=== PATIENT | male | born 1960 | race Caucasian/White ===

== ENCOUNTER → 2019-08-31 14:46 | Outpatient (BNVA) | payer OTHER, SELFPAY | PROVIDERS: Family Provider Internal Medicine; PCP Internal Medicine; Visit Provider Internal Medicine | DX: D50.8 Other iron deficiency anemias (principal); E53.8 Deficiency of other specified B group vitamins; K90.9 Intestinal malabsorption, unspecified; I10 Essential (primary) hypertension | CPT/HCPCS: 82607; 85025 ==

== ENCOUNTER → 2019-09-01 14:46 | Outpatient (BNVA) | payer OTHER, SELFPAY | PROVIDERS: Family Provider Internal Medicine; PCP Internal Medicine; Visit Provider Internal Medicine | DX: D50.8 Other iron deficiency anemias (principal); E53.8 Deficiency of other specified B group vitamins; K90.9 Intestinal malabsorption, unspecified; I10 Essential (primary) hypertension | CPT/HCPCS: 83540; 83550 ==

== ENCOUNTER → 2020-04-21 16:12 | Outpatient (BNVA) | payer OTHER, SELFPAY | PROVIDERS: Family Provider Internal Medicine; PCP Internal Medicine; Visit Provider Internal Medicine | DX: K90.9 Intestinal malabsorption, unspecified (principal); E11.9 Type 2 diabetes mellitus without complications | CPT/HCPCS: 82607; 83550; 85025 ==

== ENCOUNTER → 2020-10-26 15:40 | Outpatient (BNVA) | payer OTHER, SELFPAY | PROVIDERS: Family Provider Internal Medicine; PCP Internal Medicine; Visit Provider Internal Medicine | DX: K90.9 Intestinal malabsorption, unspecified (principal); N52.9 Male erectile dysfunction, unspecified; I10 Essential (primary) hypertension; E53.8 Deficiency of other specified B group vitamins | CPT/HCPCS: 82607; 83550; 84153; 84403; 85025 ==

== ENCOUNTER → 2020-10-31 13:02 | Day surgery (SDC) | payer OTHER, SELFPAY ==
[2020-10-31 13:08] VITALS: BP 151/75; PULSE 104; RESP 16; TEMP 36.7; O2SAT 100; BMI 25.0
[2020-10-31] MEDS: ferric carboxy (IVPB) 750 MG in sodium chloride 0.9% (100 ml) 100 ML 345 MG IV (13:20)
== END ==
PROVIDERS: PCP Internal Medicine; Visit Provider Internal Medicine
DX: K90.9 Intestinal malabsorption, unspecified (principal)
CPT/HCPCS: 96365; J1439

== ENCOUNTER → 2020-11-07 13:09 | Day surgery (SDC) | payer OTHER, SELFPAY ==
[2020-11-07 13:16] VITALS: BP 147/80; PULSE 90; RESP 18; TEMP 36.5; O2SAT 100
[2020-11-07] MEDS: ferric carboxy (IVPB) 750 MG in sodium chloride 0.9% (100 ml) 100 ML 220 MG IV (13:25)
== END ==
PROVIDERS: PCP Internal Medicine; Visit Provider Internal Medicine
DX: K90.9 Intestinal malabsorption, unspecified (principal)
CPT/HCPCS: 96365; J1439

== ENCOUNTER → 2020-12-22 14:39 | Outpatient (BNVA) | payer OTHER, SELFPAY | PROVIDERS: PCP Internal Medicine; Visit Provider Internal Medicine | DX: K51.319 Ulcerative (chronic) rectosigmoiditis with unspecified complications (principal); K90.9 Intestinal malabsorption, unspecified | CPT/HCPCS: 82607; 83550; 85025 ==

== ENCOUNTER → 2021-02-03 08:58 | Outpatient (BNVA) | payer OTHER, SELFPAY | PROVIDERS: PCP Internal Medicine; Visit Provider Internal Medicine | DX: K90.9 Intestinal malabsorption, unspecified (principal) | CPT/HCPCS: 83550 ==

== ENCOUNTER → 2021-03-28 10:56 | Day surgery (SDC) | payer OTHER, SELFPAY ==
--- NOTE | 2021-03-28 11:08 | XRR_ITS ---
PROCEDURE INFORMATION: Exam: XR Complete Acute Abdomen Series Including Chest Exam date and time: 03/28/2021 11:08 AM Age: 60 years old Clinical indication: Nausea and vomiting; Additional info: N/v TECHNIQUE: Imaging protocol: XR complete acute abdomen series, including 2 or more views of the abdomen and a single view chest. COMPARISON: CT abdomen pelvis w con* [id number] 08/03/2016 2:03 PM FINDINGS: Lungs: Normal. No consolidation. Pleural spaces: Normal. No pleural effusions. No pneumothorax. Heart/Mediastinum: Normal. No cardiomegaly. Gastrointestinal tract: Numerous loops of air-filled small bowel some of which are mildly prominent as well as thickened the latter particularly in the left mid and upper abdomen. Intraperitoneal space: Normal. No free air. Bones/joints: Normal. No acute fracture. Soft tissues: Normal. XR/XR acute abdomen series [id number] IMPRESSION: Numerous loops of air-filled small bowel some of which are mildly prominent as well as thickened the latter particularly in the left mid and upper abdomen.
[2021-03-28 11:12] VITALS: BP 142/99; PULSE 118; RESP 18; TEMP 36.6; O2SAT 98
[2021-03-28] MEDS: sodium chloride 0.9% 1,000 ML 999 ML IV ×2 (11:24→12:35)
[2021-03-28] MEDS: ondansetron 2 mg/ML SDV 2 mL 8 MG IVP (11:25)
== END ==
PROVIDERS: PCP Internal Medicine; Visit Provider Internal Medicine
DX: R11.2 Nausea with vomiting, unspecified (principal)
CPT/HCPCS: 74022; 80053; 96360; 96361; 96374; J2405; J7030

== ENCOUNTER → 2021-03-29 10:50 | Day surgery (SDC) | payer OTHER, SELFPAY ==
[2021-03-29 11:03] VITALS: BP 152/94; PULSE 95; RESP 16; TEMP 36.8; O2SAT 98
[2021-03-29 11:12] VITALS: BMI 23.8
[2021-03-29] MEDS: ondansetron 2 mg/ML SDV 2 mL 8 MG IVP (11:16)
[2021-03-29] MEDS: sodium chloride 0.9% 1,000 ML 999 ML IV ×2 (11:16→12:26)
== END ==
PROVIDERS: PCP Internal Medicine; Visit Provider Internal Medicine
DX: R11.2 Nausea with vomiting, unspecified (principal)
CPT/HCPCS: 96360; 96361; 96374; J2405; J7030

== ENCOUNTER 2021-05-31 14:13 | Outpatient (CLI) | payer OTHER, SELFPAY | END 2021-05-31 14:14 | disposition home or self-care (01) | LOC: LAB 14:19 | PROVIDERS: PCP Internal Medicine; Visit Provider Internal Medicine | DX: K90.9 Intestinal malabsorption, unspecified (principal) | CPT/HCPCS: 83993 ==

== ENCOUNTER → 2021-12-13 15:30 | Outpatient (BNVA) | payer OTHER, SELFPAY | PROVIDERS: PCP Internal Medicine; Visit Provider Internal Medicine | DX: K90.9 Intestinal malabsorption, unspecified (principal); S83.8X2A Sprain of other specified parts of left knee, initial encounter; I10 Essential (primary) hypertension; E53.8 Deficiency of other specified B group vitamins | CPT/HCPCS: 80053; 82607; 83550; 85025 ==

== ENCOUNTER → 2022-06-25 16:51 | Outpatient (BNVA) | payer OTHER, SELFPAY | PROVIDERS: PCP Internal Medicine; Visit Provider Internal Medicine | DX: E53.8 Deficiency of other specified B group vitamins (principal); S83.8X2A Sprain of other specified parts of left knee, initial encounter; I10 Essential (primary) hypertension; K90.9 Intestinal malabsorption, unspecified; N52.9 Male erectile dysfunction, unspecified | CPT/HCPCS: 83550; 84403; 85025; G0103 ==